=== PATIENT | male | born 1995 | race Caucasian/White ===

== ENCOUNTER 2019-02-07 18:37 | Emergency (ER) | payer SELFPAY ==
[~2019-02-07] VITALS: Ht 177.8 cm; Wt 88.6 kg
[2019-02-07 21:50] VITALS: BP 116/55
== END 2019-02-07 23:44 | disposition home or self-care (01) ==
LOC: EMS 18:40
DX: F32.9 Major depressive disorder, single episode, unspecified (principal); F12.90 Cannabis use, unspecified, uncomplicated